=== PATIENT | male | born 1955 | race African-American/Black ===

== ENCOUNTER → 2018-04-09 14:07 | Outpatient (CLI) | payer MEDICARE ==
[2012-08-20 08:21] VITALS: BMI 21.4
== END | disposition home or self-care (01) ==
LOC: D.CT 13:30
DX: S72.001A Fracture of unspecified part of neck of right femur, initial encounter for closed fracture (principal); X58.XXXA Exposure to other specified factors, initial encounter

== ENCOUNTER → 2018-04-30 09:57 | Outpatient (CLI) | payer MEDICARE ==
[2012-08-20 08:21] VITALS: BMI 21.4
--- NOTE | ~2018-04-30 | HEMODYNAMI ---
PATIENT:FERNANDEZ JEAN MEDICAL RECORD: [id number] : 57 LOCATION:LO ADMISSION DATE: 04/30/18 Generatedon:04/30/201811:29 Patient name: FERNANDEZ JEAN Patient #: [id number] SSN: DO B: 1955 Date of study: 04/30/2018 Page: Of Hemodynamic Procedure Report Patient Data Patient Demographics Procedure consent was obtained First Name: FERNANDEZ Gender: Male Last Name: TED : 1955 Patient #: [id number] Age: 63 year(s) Race: Black Additional ID: [id number] Contact details [address]: [address] [place] [address] State: [place] City: [place] Zip code: [address] Past Medical History Allergies: No known allergies Admission Admission Data Admission Date: 04/30/2018 Admission Time: 9:57 Procedure Procedure Types Cath Procedure Peripheral Cath 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 Start room use. 10:58:27 Time tracking: Regular hours (M-F 7:00 - 5:00) 10:58:36 Patient received from Other to IR Alert and oriented. Tansferred to table in Supine position. 10:58:38 Correct patient and procedure confirmed by team. 10:58:40 Signed procedure consent form obtained from spouse. 10:58:42 Full Disclosure recording started 10:58:42 - 10:58:44 Pre-procedure instructions explained to patient. 10:58:44 Pre-op teaching completed and patient verbalized understanding. 10:58:48 Family in waiting room. 10:58:55 Patient allergic to No known allergies 11:01:02 Is patient on blood thinner?No 11:01:12 Right groin area was prepped with betadine and draped in sterile fashio n 11:05:38 SAFE-T PLUS MYELOGRAM TRAY opened to sterile field. 11:15:47 Physician arrived 11:15:50 --------ALL STOP TIME OUT------ 11:15:52 Final Timeout: patient, procedure, and site verified with staff and physician. All members of the team are in agreement. 11:16:16 Procedure started. 11:28:45 fluid aspirated from rt hip 11:28:50 Procedure ended.(Physican Out) Device Usage Item Name Manufacture Quantity Catalog Hospital Part Current Minimal Lot# / Number Charge Number Stock Stock Serial# Code SAFE-T [employer] 1 [id number] PLUS MYELOGRAM TRAY Signature Audit [place] Stage Time Signature Unsigned Intra-Procedure 04/30/2018 Earnestine Guerra 11:29:42 AM RT(R) Signatures Monitor : Ari Signature : Jose RT Date : Time : [address] [address] [place] [address]
== END | disposition home or self-care (01) ==
LOC: D.SP 09:57 → D.RAD 10:00
DX: M25.551 Pain in right hip (principal); Z01.812 Encounter for preprocedural laboratory examination

== ENCOUNTER → 2018-05-10 15:46 | Outpatient (CLI) | payer MEDICARE ==
[2012-08-20 08:21] VITALS: BMI 21.4
[2018-05-10 16:38] LABS: BASOPHILS 0.2 % (0-2); EOSINOPHILS 0.6 % (0-7); HEMATOCRIT 42.2 % (42.0-54.0); HEMOGLOBIN 13.4 g/dL (13.5-17.5); IMMATURE GRANULOCYTES 0.2 % (0-5); LYMPHOCYTES 15.7 % (15-50); MCH 27.9 pg (26.0-34.0); MCHC 31.8 g/dL (31.0-37.0); MCV 87.9 fL (80.0-100.0); MEAN PLATELET VOLUME 10.7 fL (7.4-10.4); MONOCYTES 7.4 % (2-11); NEUTROPHILS 75.9 % (40-80); WBC 8.5 10x3/uL (4.8-10.8)
[2018-05-10 16:44] LABS: PLATELET COUNT 128 10x3/uL (130-400)
[2018-05-10 17:13] LABS: ERYTHROCYTE SEDIMENTATION RATE 25 mm/hr (0-20)
== END | disposition home or self-care (01) ==
LOC: D.LAB 15:46
PROVIDERS: Orthopaedic Surgery
DX: M87.051 Idiopathic aseptic necrosis of right femur (principal)

== ENCOUNTER → 2018-06-14 18:55 | Outpatient (CLI) | payer MEDICARE ==
[2012-08-20 08:21] VITALS: BMI 21.4
== END | disposition home or self-care (01) ==
LOC: D.LABREF 18:55
PROVIDERS: Orthopaedic Surgery
DX: E11.9 Type 2 diabetes mellitus without complications (principal)